=== PATIENT | female | born 1960 | race African-American/Black ===

== ENCOUNTER 2025-05-18 16:44 | Emergency (ER) | payer BC ==
[~2025-05-18] VITALS: Ht 165.1 cm; Wt 77.0 kg
[2025-05-18 16:50] VITALS: O2SAT 98
[2025-05-18] MEDS: SODIUM CHLORIDE 0.9% (SEPSIS BOLUS) IV ONE (17:32)
[2025-05-18] MEDS: ONDANSETRON HCL 4MG/2ML INJ IV ONE (17:32)
[2025-05-18 17:37] LABS: BASOPHILS % 0.9 % (0.0-2.0); EOSINOPHILS % 0.3 % (0.0-5.0); HEMATOCRIT. 37.0 % (36.0-48.0); HEMOGLOBIN. 12.2 g/dL (12.0-16.0); LYMPHOCYTES % 10.9 % (20.0-50.0); MEAN PLATELET VOLUME 8.0 fl (7.4-10.4); MONOCYTES % 7.5 % (2.0-8.0); NEUTROPHILS % 80.4 % (40.0-76.0); PLATELET 386 x1000/uL (130-400); RED BLOOD CELL COUNT 4.73 mill/uL (4.2-5.4); RED CELL DISTRIBUTION WIDTH 13.8 % (11.6-14.6)
[2025-05-18 17:44] LABS: INR 1.0
[2025-05-18 17:46] LABS: CREATININE 1.1 mg/dL (0.6-1.0)
[2025-05-18 17:47] LABS: UREA NITROGEN BLOOD 13 mg/dL (9-23)
[2025-05-18 17:48] LABS: ASPARTATE AMINOTRANSFERASE 11 IU/L (<34)
[2025-05-18 17:49] LABS: BILIRUBIN DIRECT 0.2 mg/dL (<=3.0); BILIRUBIN TOTAL 0.6 mg/dL (0.1-1.0); PROTEIN TOTAL 7.5 g/dL (6.0-8.3)
[2025-05-18 21:15] LABS: INFLUENZA TYPE A Presumptive Negative (Pres. Neg.)
[2025-05-18 21:16] LABS: INFLUENZA TYPE B Presumptive Negative (Pres. Neg.)
[2025-05-18 21:17] LABS: RESPIRATORY SYNCYTIAL VIRUS Not Detected (Not Detectd)
[2025-05-18] MEDS ORDERED: ONDA-239 PO (21:21)
[2025-05-18] MEDS ORDERED: IBUP-1455 MT (21:21)
[2025-05-18 21:49] VITALS: BP 137/67; PULSE 89; RESP 17; TEMP 37.1; O2SAT 98
== END 2025-05-18 22:01 | disposition home or self-care (01) ==
LOC: ER 16:44
DX: A08.4 Viral intestinal infection, unspecified (principal); E11.9 Type 2 diabetes mellitus without complications; I10 Essential (primary) hypertension; Z79.899 Other long term (current) drug therapy; Z88.0 Allergy status to penicillin; Z20.822 Contact with and (suspected) exposure to COVID-19
CPT/HCPCS: 99285; 74176; 96374; 71045; 96361; 87426; 80076; 80048; 83605; 83690; 83735; 85025; 85610; 87420; 87040; 87804 ×2; 36415; 84145; 93005; J2405; J7030